=== PATIENT | male | born 1970 | race Hispanic/Latino ===

== ENCOUNTER 2021-03-25 08:02 | Emergency (ER) | payer SELFPAY ==
--- NOTE | 2021-03-25 08:45 | EDPHYS ---
Physician Documentation [facility] Name: Nilson Zambrano Age: 50 yrs Sex: Male : 1970 Arrival Date: 03/25/2021 Time: 08:03 Bed 5 Private MD: HELEN Physician Jason Licea HPI: 03/25 08:19 This 50 yrs old Male presents to ER via Ambulatory with complaints of covid+. jmm 08:19 The patient has shortness of breath at rest. Onset: The symptoms/episode began/occurred jmm gradually, 10 day(s) ago. Duration: The symptoms are continuous. The patient's shortness of breath is aggravated by nothing, is alleviated by nothing. Associated signs and symptoms: Pertinent positives: non-productive cough. The patient has not experienced similar symptoms in the past. Historical: - Allergies: 08:17 No Known Allergies; jl7 - Home Meds: 08:17 None [Active]; jl7 - PMHx: 08:17 None; jl7 - PSHx: 08:17 None; jl7 - Immunization history:: Adult Immunizations not up to date, Client reports having NOT received the Covid vaccine. - Social history:: Smoking status: unknown. ROS: 08:19 Constitutional: Negative for fever, chills, and weight loss, Cardiovascular: Negative jm for chest pain, palpitations, and edema. 08:19 Respiratory: Positive for cough, shortness of breath. 08:19 All other systems are negative. Exam: 08:19 Constitutional: This is a well developed, well nourished patient who is awake, alert, jmm and in no acute distress. Head/Face: atraumatic. Eyes: EOMI, no conjunctival erythema appreciated ENT: Moist Mucus Membranes Neck: Trachea midline, Supple Chest/axilla: Normal chest wall appearance and motion. Cardiovascular: Regular rate and rhythm. No edema appreciated 08:19 Abdomen/GI: Non distended, soft Back: Normal ROM Skin: General appearance color normal 08:19 Respiratory: the patient does not display signs of respiratory distress, Respirations: normal, Breath sounds: wheezing: that is mild, is scattered. 08:19 Musculoskeletal/extremity: ROM: intact in all extremities. 08:19 Skin: Appearance: Color: normal in color. 08:19 Neuro: Motor: is normal. 08:19 Psych: Behavior/mood is pleasant, cooperative. Vital Signs: 08:16 BP 122 / 82; Pulse 93; Resp 23; Temp 97.1; Pulse Ox 96% on R/A; jl7 08:21 BP 123 / 85; Pulse 93; Resp 17; Pulse Ox 98% ; bp 09:35 BP 114 / 75; Pulse 88; Resp 20 S; Pulse Ox 98% on R/A; aa5 MDM: 08:17 Patient medically screened. [facility] 08:42 Data reviewed: vital signs, nurses notes. Counseling: I had a detailed discussion with claudia the patient and/or guardian regarding: the historical points, exam findings, and any diagnostic results supporting the discharge/admit diagnosis, lab results, radiology results, the need for outpatient follow up, to return to the emergency department if symptoms worsen or persist or if there are any questions or concerns that arise at home. ED course: Patient is alert and patient is alert nontoxic in appearance in the ED. No hypoxia appreciated. Do not suspect pulmonary embolism. Patient advised to return to the ED if he does develop worsening symptoms. Patient does not qualify for monoclonal antibodies due to timeframe and no comorbidities. Administered Medications: 08:30 Drug: Decadron (dexamethasone) 10 mg Route: IM; Site: left deltoid; bp 09:38 Follow up: Response: No adverse reaction aa5 08:30 Drug: Albuterol HFA Inhaler 2 puffs Route: Inhalation; bp 09:38 Follow up: Response: No adverse reaction aa5 Disposition Summary: 03/25/21 08:44 Discharge Ordered Location: Home [facility] Condition: Stable [facility] Diagnosis - Coronavirus infection, unspecified [facility] Followup: [facility] - With: Private Physician - When: 2 - 3 days - Reason: Recheck today's complaints, Continuance of care, Re-evaluation by your physician Discharge Instructions: - Discharge Summary Sheet [facility] - COVID-19 [facility] Forms: - Medication Reconciliation Form [facility] - Thank You Letter [facility] - Antibiotic Education [facility] - Prescription Opioid Use [facility] Prescriptions: - albuterol sulfate 90 mcg/actuation Inhalation HFA aerosol inhaler - inhale 2 puff by INHALATION route every 4 hours; 1 Pump; Refills: 0, Product [facility] Selection Permitted Addendum: 03/29/2021 06:52 Co-signature as Attending Physician, Jason Vinayak MD I agree with the assessment and c barrera plan of care. Signatures: Jason Licea MD MD cha Mickail, Joel, PA PA jmm Leal, Jahala RN RN jl7 Rickey Batista RN RN bp Jackie Lindsay RN aa5
--- NOTE | 2021-03-25 08:45 | ER ---
Nurse's Notes [facility] Name: Nilson Zambrano Age: 50 yrs Sex: Male : 1970 Arrival Date: 03/25/2021 Time: 08:03 Bed 5 Private MD: Diagnosis: Coronavirus infection, unspecified Presentation: 03/25 08:16 Chief complaint: Patient states: Covid positive for 10 days, shortness of breath with jl7 coughing, denies fever. Coronavirus screen: Vaccine status: Patient reports being unvaccinated. cough unrelated to allergies, shortness of breath, Client reports previous positive COVID test result. 10 days. Ebola Screen: No symptoms or risks identified at this time. Initial Sepsis Screen: Does the patient meet any 2 criteria? No. Patient's initial sepsis screen is negative. Does the patient have a suspected source of infection? No. Patient's initial sepsis screen is negative. Risk Assessment: Do you want to hurt yourself or someone else? Patient reports no desire to harm self or others. Onset of symptoms is unknown. Care prior to arrival: None. 08:16 Method Of Arrival: Ambulatory [facility] 08:16 Acuity: [place] 3 jl7 Triage Assessment: 08:17 General: Appears in no apparent distress. uncomfortable, Behavior is calm, cooperative, jl7 appropriate for age. Pain: Denies pain. Neuro: Level of Consciousness is awake, alert, obeys commands, Oriented to person, place, time. Cardiovascular: Patient's skin is warm and dry. Respiratory: Airway is patent Respiratory effort is even, unlabored, Respiratory pattern is symmetrical, tachypnea. Derm: Skin is pink, warm \T\ dry. Historical: - Allergies: 08:17 No Known Allergies; jl7 - Home Meds: 08:17 None [Active]; jl7 - PMHx: 08:17 None; jl7 - PSHx: 08:17 None; jl7 - Immunization history:: Adult Immunizations not up to date, Client reports having NOT received the Covid vaccine. - Social history:: Smoking status: unknown. Screenin:20 Abuse screen: Denies threats or abuse. Denies injuries from another. Nutritional bp screening: No deficits noted. Tuberculosis screening: No symptoms or risk factors identified. Fall Risk None identified. Assessment: 08:20 General: SEE TRIAGE NOTE. bp 09:38 Reassessment: Patient is alert, oriented x 3, equal unlabored respirations, skin aa5 warm/dry/pink. Vital Signs: 08:16 BP 122 / 82; Pulse 93; Resp 23; Temp 97.1; Pulse Ox 96% on R/A; jl7 08:21 BP 123 / 85; Pulse 93; Resp 17; Pulse Ox 98% ; bp 09:35 BP 114 / 75; Pulse 88; Resp 20 S; Pulse Ox 98% on R/A; aa5 ED Course: 08:03 Patient arrived in ED. as 08:06 Ran Ceron PA is PHCP. claudia 08:06 Ria Carrillo MD is Attending Physician. claudia 08:11 Attending Physician role handed off by Ria Carrillo MD cha 08:11 Jason Licea MD is Attending Physician. [facility] 08:17 Triage completed. jl7 08:17 Arm band placed on right wrist. jl7 08:20 Patient has correct armband on for positive identification. Bed in low position. Call bp light in reach. Side rails up X2. 08:21 Rickey Batista, RN is Primary Nurse. bp 09:38 No provider procedures requiring assistance completed. Patient did not have IV access aa5 during this emergency room visit. Administered Medications: 08:30 Drug: Decadron (dexamethasone) 10 mg Route: IM; Site: left deltoid; bp 09:38 Follow up: Response: No adverse reaction aa5 08:30 Drug: Albuterol HFA Inhaler 2 puffs Route: Inhalation; bp 09:38 Follow up: Response: No adverse reaction aa5 Outcome: 08:44 Discharge ordered by . jm 09:38 Discharged to home ambulatory. aa5 09:38 Condition: stable 09:38 Discharge instructions given to patient, Instructed on discharge instructions, follow up and referral plans. medication usage, Demonstrated understanding of instructions, follow-up care, medications, Prescriptions given X 1. 09:42 Patient left the ED. aa5 Signatures: Jason Licea MD MD cha Mickail, Joel, PA PA jmm Martinez, Amelia as Calderon, Audri, RN RN aa5 Vahid Castro RN RN jl7 Rickey Batista, GEOVANNY RN bp
[2021-03-25] MEDS ORDERED: dexAMETHasone 10 MG/ML VIAL ONE (08:57)
[2021-03-25] MEDS ORDERED: ALBUTEROL INHALER 60 PUFF/8 GM IH ONE (08:57)
[2021-03-25 09:48] VITALS: TEMP 97.1
[2021-03-25 09:49] VITALS: BP 123/85; O2SAT 98
== END 2021-03-25 09:42 | disposition home or self-care (01) ==
LOC: ER 08:02
DX: U07.1 COVID-19 (principal)
CPT/HCPCS: 96372; 99284; J1100